=== PATIENT | female | born 1965 | race African-American/Black ===

== ENCOUNTER 2018-01-08 10:54 | Emergency (ER) | payer OTHER ==
[~2018-01-08] VITALS: Ht 170.2 cm; Wt 111.0 kg
[2018-01-08] MEDS ORDERED: LISI-167 PO (12:55)
[2018-01-08] MEDS ORDERED: BACITRACIN ZINC OINT 500U/GM, 0.9 GM ONE (12:57)
[2018-01-08] MEDS ORDERED: PLEASE ENTER ALLERGIES MC SCH (13:00)
[2018-01-08] MEDS ORDERED: BACITRACIN ZINC OINT 500U/GM, 0.9 GM TP SCH (13:00)
[2018-01-08 13:12] LABS: MEAN CORPUSCULAR HEMOGLOBIN 27.4 pg (27.0-34.8); MEAN CORPUSCULAR HGB CONC 33.1 g/dL (32.4-35.8); MEAN CORPUSCULAR VOLUME 82.9 fL (80-100); MEAN PLATELET VOLUME 9.5 fL (7.4-10.4); PLATELET COUNT 229 x10^3/uL (130-400); RED BLOOD COUNT 4.93 x10^6/uL (3.82-5.3); RED CELL DISTRIBUTION WIDTH 15.2 % (9.6-15.2)
[2018-01-08 13:13] LABS: INTERNATIONAL NORMALIZED RATIO 0.98 (0.93-1.1); PROTHROMBIN TIME 10.2 Seconds (9.6-11.5)
[2018-01-08 13:16] LABS: ALBUMIN 3.5 g/dL (3.4-5.0); ANION GAP 7 mmol/L (5-15); CALCIUM 8.8 mg/dL (8.5-10.1); CHLORIDE 108 mmol/L (98-107)
[2018-01-08 13:17] LABS: CREATININE 0.83 mg/dL (0.55-1.02)
[2018-01-08 13:27] LABS: MD YES
[2018-01-08 13:29] LABS: <PLATELET ESTIMATE> ADEQUATE; <PLT MORPHOLOGY> NORMAL PLT MORPH; <RBC MORPHOLOGY> NORMAL; BAND#(MANUAL) 0.07 x10^3/uL; BANDS%(MANUAL) 1 % (0-7); EOS% (MANUAL) 3 % (1-7); LYMPH#(MANUAL) 2.18 x10^3/uL (1-3.4); LYMPHS% (MANUAL) 32 % (22-44); MONOS#(MANUAL) 0.41 x10^3/uL (0.3-2.7); MONOS% (MANUAL) 6 % (2-9); SEG#(MANUAL) 3.94 x10^3/uL (1.8-6.8); SEGS% (MANUAL) 58 % (42-75)
[2018-01-08] MEDS ORDERED: BACITRACIN ZINC OINT 500U/GM, 0.9 GM TP ONE (13:30)
[2018-01-08 14:36] VITALS: BP 111/71
== END 2018-01-08 14:38 | disposition home or self-care (01) ==
LOC: ED 13:03
DX: I10 Essential (primary) hypertension (principal); R04.0 Epistaxis; J45.909 Unspecified asthma, uncomplicated; K21.9 Gastro-esophageal reflux disease without esophagitis
CPT/HCPCS: 36415; 80048; 82040; 85025; 85610; 85730; 99284